=== PATIENT | female | born 1955 | race Caucasian/White ===

== ENCOUNTER → 2016-05-31 | Outpatient (CLI) | payer OTHER ==
[~2016-05-31] MED LIST: IOPAMIDOL (ISOVUE-300) 100 ML BTL IV ONE
== END ==
LOC: FIMAGING 08:37
PROVIDERS: ATTEND Internal Medicine Gastroenterology
DX: R68.81 Early satiety (principal)
CPT/HCPCS: Q9967

== ENCOUNTER → 2016-09-28 | Outpatient (CLI) | payer OTHER | LOC: FIMAGING 09:38 | PROVIDERS: ATTEND Internal Medicine Gastroenterology | DX: R63.4 Abnormal weight loss (principal) ==

== ENCOUNTER → 2017-01-03 | Outpatient (CLI) | payer OTHER | LOC: FIMAGING 12:33 | PROVIDERS: ATTEND Family Medicine | DX: Z12.31 Encounter for screening mammogram for malignant neoplasm of breast (principal); Z80.3 Family history of malignant neoplasm of breast | CPT/HCPCS: G0202 ==

== ENCOUNTER 2017-06-16 02:21 | Emergency (ER) | payer OTHER ==
[2017-06-16 02:28] VITALS: RESP 16; TEMP 98.4
--- NOTE | 2017-06-16 02:41 | EDPHY ---
H & P Stated Complaint: ALLERGIC RXN AMOXICILLIN RASH/TINGLING TONGUE Time Seen by Provider: 06/16/17 02:28 HPI/ROS: Chief Complaint: Allergic reaction HPI: 61-year-old woman who is being treated for sinusitis with amoxicillin woke about 2 hr ago with a burning sensation and the skin of her chest and noticed some mild red rash. Patient then developed sensation that her tongue was swelling. She took 1, 25 mg Benadryl. She then called the nurse line and was advised to come to the emergency department. She did take a 2nd Benadryl. Patient denies any difficulty breathing. No neck swelling. No difficulty swallowing. She now says that she is feeling better and feels almost back to normal. No fevers or chills. No cough. No nausea or vomiting. ROS: 10 point Review of Systems is negative except as noted in the HPI. Family History: non-contributory Physical Exam: Gen: Awake, Alert, No Distress HEENT: Nose: no rhinorrhea Eyes: PERRLA, EOMI Mouth: Moist mucosa , tongue normal, no oral pharyngeal erythema or edema. Uvula is midline Neck: Supple, no JVD Chest: nontender, lungs clear to auscultation Heart: S1, S2 normal, no murmur Abd: Soft, non-tender, no guarding Back: no CVA tenderness, no midline tenderness Ext: no edema, non-tender Skin: no rash Neuro: CN II-XII intact, Sensation grossly intact, Strength 5/5 in bilateral upper and lower extremities - Personal History Current Tetanus Diphtheria and Acellular Pertussis (TDAP): No - Medical/Surgical History Hx Asthma: No Hx Chronic Respiratory Disease: No Hx Diabetes: No Hx Cardiac Disease: No Hx Renal Disease: No Hx Cirrhosis: No Hx Alcoholism: No Hx HIV/AIDS: No Hx Splenectomy or Spleen Trauma: No Other PMH: MHA, 4 KNEE SX R, LAP SX. - Social History Smoking Status: Never smoked Constitutional: Initial Vital Signs Temperature (C) 36.9 C 06/16/17 02:25 Heart Rate 69 06/16/17 02:25 Respiratory Rate 16 06/16/17 02:25 Blood Pressure 130/80 H 06/16/17 02:25 O2 Sat (%) 96 06/16/17 02:25 O2 Delivery Mode Room Air Allergies/Adverse Reactions: triamcinolone acetonide [From Kenalog] Allergy (Severe, Verified 01/07/09 10:01) Other-Enter Comments betamethasone [From Celestone] Allergy (Intermediate, Verified 01/07/09 10:02) Flushing fluconazole [From Diflucan] Allergy (Intermediate, Verified 01/07/09 10:03) Rash loperamide HCl [From Imodium] Allergy (Intermediate, Verified 01/07/09 10:06) Rash nitrofurantoin [From Macrobid] Allergy (Intermediate, Verified 01/07/09 10:05) Rash nitrofurantoin macrocrystalline [From Macrobid] Allergy (Intermediate, Verified 01/07/09 10:05) Rash pantoprazole sodium [From Protonix] Allergy (Intermediate, Verified 01/07/09 10: 04) Rash acetaminophen [From Tylenol] Allergy (Verified 06/16/17 02:40) aluminum hydroxide [From Mylanta] Allergy (Verified 06/16/17 02:40) bisacodyl [From GaviLyte-H and Bisacodyl] Allergy (Verified 06/16/17 02:40) calcium carbonate [From Mylanta] Allergy (Verified 06/16/17 02:40) dexlansoprazole [From Dexilant] Allergy (Verified 06/16/17 02:40) docusate Allergy (Verified 06/16/17 02:40) famotidine [From Pepcid] Allergy (Verified 06/16/17 02:40) lactulose [From Enulose] Allergy (Verified 06/16/17 02:40) linaclotide [From Linzess] Allergy (Verified 06/16/17 02:40) lubiprostone [From Amitiza] Allergy (Verified 06/16/17 02:40) magnesium [From Mylanta] Allergy (Verified 06/16/17 02:40) magnesium hydroxide [From Mylanta] Allergy (Verified 06/16/17 02:40) moxifloxacin [From Avelox] Allergy (Verified 06/16/17 02:40) oxaprozin [From Daypro] Allergy (Verified 10/26/14 10:34) polyethylene glycol 3350 [From GaviLyte-H and Bisacodyl] Allergy (Verified 06/16 02:40) potassium chloride* [From GaviLyte-H and Bisacodyl] Allergy (Verified 06/16/17 02:40) pregnenolone Allergy (Verified 06/16/17 02:40) simethicone [From Mylanta] Allergy (Verified 06/16/17 02:40) sodium bicarbonate [From GaviLyte-H and Bisacodyl] Allergy (Verified 06/16/17 02 :40) sodium chloride [From GaviLyte-H and Bisacodyl] Allergy (Verified 06/16/17 02:40 ) sumatriptan [From Imitrex] Allergy (Verified 06/16/17 02:40) OSTEO BIFLEX Allergy (Intermediate, Uncoded 01/07/09 10:06) Rash ambrotose Allergy (Uncoded 06/16/17 02:40) AVOLOX Allergy (Uncoded 10/26/14 10:34) HPLR Allergy (Uncoded 06/16/17 02:40) Home Medications: Medication Instructions Recorded AMOXICILLIN 06/16/17 Doxycycline Hyclate 100 mg PO BID #20 capsule 06/16/17 Medical Decision Making ED Course/Re-evaluation: Patient is improved. No evidence of acute angioedema or allergic sequela at this time. I will discontinue her amoxicillin and have her start on doxycycline having reviewed her multiple medication allergies. Will have her follow up with her primary care physician. She will continue taking Benadryl for any allergic symptoms. Departure - Departure Disposition: Home, Routine, Self-Care Clinical Impression: Allergic reaction Condition: Good Instructions: Allergies (ED) Additional Instructions: Please stop taking the amoxicillin begin taking doxycycline for your sinusitis. You may take Benadryl, 50 mg according to package instructions for any symptoms of allergies. Return to the emergency department for difficulty breathing, worsening tongue swelling, lightheadedness, fainting, chest pain, or any other concerns. Referrals: Irais Mullen MD [Primary Care Provider] - As per Instructions Prescriptions: Doxycycline Hyclate 100 mg PO BID #20 capsule
[2017-06-16 04:16] VITALS: BP 105/68; PULSE 67; O2SAT 94
== END 2017-06-16 04:16 | disposition home or self-care (01) ==
DX: R21 Rash and other nonspecific skin eruption (principal); T36.0X5A Adverse effect of penicillins, initial encounter

== ENCOUNTER → 2017-08-02 | Outpatient (CLI) | payer OTHER | LOC: CIMAGING 09:39 | PROVIDERS: ATTEND Physical Medicine & Rehabilitation Neuromuscular Medicine | DX: M47.897 Other spondylosis, lumbosacral region (principal); M47.896 Other spondylosis, lumbar region; M51.27 Other intervertebral disc displacement, lumbosacral region; M51.26 Other intervertebral disc displacement, lumbar region; M48.07 Spinal stenosis, lumbosacral region; M48.061 Spinal stenosis, lumbar region without neurogenic claudication | CPT/HCPCS: 72114-PO ==

== ENCOUNTER → 2018-01-09 | Outpatient (CLI) | payer OTHER | LOC: FIMAGING 13:25 | PROVIDERS: ATTEND Family Medicine | DX: Z12.31 Encounter for screening mammogram for malignant neoplasm of breast (principal); Z80.3 Family history of malignant neoplasm of breast ==